=== PATIENT | female | born 1960 | race Caucasian/White ===

== ENCOUNTER 2020-02-15 14:18 | Outpatient (CLI) | payer BC ==
--- NOTE | 2020-02-15 14:51 | RAD ---
Right knee 4 views HISTORY: Right knee pain. FINDINGS: Mild joint space narrowing medial compartment. Mild tricompartmental osteophytosis. Minimal fluid within the suprapatellar bursa. No acute fracture or dislocation. No aggressive osseous erosions. IMPRESSION : Mild osteoarthritic changes right knee with a small joint effusion.
== END 2020-02-15 14:19 | disposition home or self-care (01) ==
LOC: SCSRAD 14:18
PROVIDERS: ATTEND Chiropractor
DX: M25.561 Pain in right knee (principal); M17.11 Unilateral primary osteoarthritis, right knee; M25.461 Effusion, right knee